=== PATIENT | male | born 1955 | race Caucasian/White ===

== ENCOUNTER → 2016-07-05 | Day surgery (SDC) | payer OTHER ==
[~2016-07-05] VITALS: Ht 172.7 cm; Wt 108.9 kg
[~2016-07-05] MED LIST: AMIODARONE HCL400 M1 PO; AZITHROMYCIN500 M3 PO; CARDIZEM CD120 M2 PO; CARDIZEM30 M1 PO; ELIQUIS5 M1 PO; MUCINEX600 M1 PO; NICOTINE PATCH1 EAC2 TOP; PREDNISONE20 M1 PO; SIMVASTATIN20 M2 PO; ZOCOR40 M1 PO
--- NOTE | 2016-07-05 10:01 | Operative Report ---
Operative/Inv Procedure Report Surgery Date: 07/05/16 Name of Procedure: Tonsillectomy Uvulopalatopharyngoplasty Pre-Operative Diagnosis: Tonsillar hypertrophy uvular hypertrophy Low-lying soft palate obstructive sleep apnea Post-Operative Diagnosis: Same Estimated Blood Loss: scant Surgeon/Implementation Services Analyst: SIMEON ZAVALA MD Anesthesia: general endotracheal tube Drains: Non- Specimens: Right tonsil and uvula, left tonsil Complications: None Condition: Stable on leaving the OR Operative Indication: Mouth breathing and heavy Muffled voice Recurrent upper respiratory infections Recurrent tonsillitis Concretions forming within the tonsils with bad breath and bad taste Patient has been treated with recurrent courses of antibiotics with improvement but then recurrence Operative/Procedure Note Note: Patient was brought to the operating room. Placed on the operating table in supine position. First timeout was performed including patient's name, ID number and planned procedure. Then general orotracheal anesthesia was induced. Endotracheal tube was taped in the midline. Oral cavity was exposed with oral cavity retractor, endotracheal tube positioned in the midline over the tongue. Soft palate was palpated. There was no submucous cleft. Nasopharynx was visualized with a mirror. There was no evidence of adenoid hypertrophy. Examination of the oropharynx revealed large tonsils obstructing the oropharynx and meeting in the midline. The uvula was long and markedly hypertrophied and soft palate was low-lying. Right tonsil was grasped with curved Allis, incision was placed over the anterior superior pole of the mucosa only. Tonsil capsule was identified and dissection was carried from superior to inferior until the entire tonsil was removed. Next the left tonsil was grasped with curved Allis. Incision was placed with the Bovie over the anterior-superior pole through the mucosa only. Tonsillar capsule was identified and dissection carried from the superior to the inferior until the entire tonsil was removed. Dissection was carried with a Bovie, pencil-tip with foot control set on cut of 5 and coag of 15. At the end of the procedure tonsillar fossa was inspected for bleeders. Additional cautery was carried to assure adequate hemostasis. During dissection both tonsils were markedly scarred down and fibrosed. There were very friable and had a great deal of crypts and concretions. Next uvulopalatopharyngoplasty was performed. Uvula was markedly hypertrophied and descending onto the base of tongue. It was grasped with forceps and two thirds of the uvula was removed with the Bovie set on coag of 10 and cut of 10. Once Uvulectomy was completed. Right side of the soft palate was addressed and Bovie was used to remove a wedge of soft palate adjacent to the uvula. Similar procedure was carried on the right side. This was done with the Bovie. All mucosal edges were then approximated over the lateral and medial aspect of the palate extending onto the uvula. 4-0 chromic was used for the stitching. Uvula, its mucosal edges were then approximated with 4-0 chromic simple sutures. This led to significant improvement in the oropharyngeal airway. Surgery was completed. Stomach was suctioned with an OG tube. The patient was reawakened, extubated and taken to the recovery room in good condition. There were no complications. Estimated blood loss was minimal. Findings: Tonsils 4+, uvula markedly hypertrophied, soft palate low-lying Discharge Disposition: PACU CC: MICH NAVA,SOWMYA Espinosa
== END ==
LOC: STS 02:00
PROVIDERS: Otolaryngology
DX: J35.1 Hypertrophy of tonsils (principal); K13.79 Other lesions of oral mucosa; G47.30 Sleep apnea, unspecified; I10 Essential (primary) hypertension; E78.5 Hyperlipidemia, unspecified; J39.8 Other specified diseases of upper respiratory tract
CPT/HCPCS: 36415; 88304; 88305; C9399; J0131; J0690; J2250

== ENCOUNTER → 2017-08-15 | Day surgery (SDC) | payer OTHER ==
[~2017-08-15] VITALS: Ht 172.7 cm; Wt 113.4 kg
[~2017-08-15] MED LIST changes: +CEFUROXIME500 MG PO; +LIPITOR20 M2 PO; +PREDNISONE10 M2 PO
--- NOTE | 2017-08-15 09:04 | Operative Report ---
Operative/Inv Procedure Report Surgery Date: 08/15/17 Name of Procedure: Endoscopic sinus surgery with 1. Nasal septal reconstruction 2. Middle meatal antrotomy with polypoid tissue removal, bilateral 3. Partial ethmoidectomy with polypoid tissue removal, bilateral 4. Middle turbinate reduction, bilateral 5. Inferior turbinate submucous resection, bilateral Pre-Operative Diagnosis: 1. Deviated nasal septum 2. Chronic sinusitis, ethmoid, maxillary, bilateral 3. Turbinate hypertrophy inferior and middle, bilateral Post-Operative Diagnosis: Same Estimated Blood Loss: less than 50ml Surgeon/Blanket Cutting Machine Operator: Carla Guerrero MD Anesthesia: general endotracheal tube Specimens: 1. Nasal septum and inferior turbinates 2. Sinus, ethmoid and maxillary and middle turbinate, left 3. Sinus, ethmoid and maxillary and middle turbinates, right Microbiology: None Complications: None Condition: Stable on leaving the OR Operative Indication: Difficulty breathing through the nose, nasal congestion x several years Chronic sinusitis x years Patient treated with multiple antibiotics, antihistamines, decongestants, steroid and antihistamine nasal sprays with limited improvement, with improvement but then recurrence Frequent facial pressures and headaches Operative/Procedure Note Note: The patient was brought to the operating room. Placed on the operating room table in supine position. At first timeout was performed identifying the patient, ID numbers and procedure to be performed. Next general oral endotracheal anesthesia was induced. Endotracheal tube was secured with tape over the left corner of the lip. Operating room table was rotated 90 to the left and patient was positioned for septal surgery with head slightly hyperextended and rotated to the right. At first vasoconstriction was carried by application of Afrin spray on cottonoid pledgets. Next nasal septum was injected with 1% lidocaine with 1: 100,000 epinephrine approximately 9 mL was injected on the left and another 6 mL on the right. This followed by placement of cotton pledgets saturated with cocaine solution and Afrin spray. Patient's face was then prepped and draped in routine manner and surgery was performed. A left hemitransfixion incision was placed and anterior mucoperichondrial tunnel was elevated followed by posterior mucoperiosteal tunnel. Bony cartilaginous junction was identified and and mucoperiosteal tunnel was elevated on the contralateral side. And anteriorly there was a quadrangular cartilage bowing to the right. Posteriorly there was bony deviation to her left followed by a large vomerine spur. At first the leftward deviation was worked on. Overlying quadrangular cartilage along the floor of the nose and the septum was removed in a piecemeal manner. This followed by piecemeal manner of removal of vomerine bone and finally septal spur was encountered during removal of the septal spur on mucoperiosteal repair performed which was to serve as a drainage hole. The entire leftward deviation was corrected to now anteriorly quadrangular cartilage shot was scored and dissected on the opposite side the spring was broken by making relaxing incision anterior older rightward deviation of the quadrangular cartilage was completely released. Once the septoplasty was completed, prior to closure, left middle turbinate and middle meatus were injected with [3] cc of 1% lidocaine with 1:100,000 epinephrine. This followed by placement of cottonoid pledgets saturated with Afrin and cocaine. Septoplasty incision was closed with 5-0 chromic simple sutures. Followed by a mattress sutures with 5-0 chromic. Please note that the entire septoplasty was carried with 0 scope as well as directed visualization with a headlight. Upon closure of septoplasty incision injection was carried out on the right. Right middle turbinate and middle meatus were injected with 6 cc of 1% lidocaine with 1:100,000 epinephrine. This followed by placement of cottonoid pledgets saturated with Afrin and cocaine. Next endoscopic sinus surgery was carried out, first on the left and then on the right. The surgery was carried with direct visualization with 0 and 30 scopes. At first on the left, middle turbinate was reduced along its inferior border with Gruenwald forceps. Middle meatus was entered. There was polypoid tissue present in the middle meatus. This was removed with the upturned Zo- Blakesley cups. Next partial ethmoidectomy was carried. Additional polypoid tissue was removed from the ethmoid sinuses. Nasofrontal duct was explored and appeared to be patent. Ethmoid bone was then dialed from pressure from polypoid degeneration . Once ethmoidectomy was completed. Maxillary sinus ostium was explored. Uncinate process was partially removed with Setliff forceps. Curved ball seeker was used to probe for the natural maxillary sinus ostium. The ostium was then dilated with curved suction. Polypoid tissue was removed. Surgery was completed on the left. Next surgery was carried on the and right. Again the middle turbinate was reduced along its inferior border with Gruenwald forceps. Middle meatus was filled with polypoid soft tissue. Tissue was then removed with the 45 Ольга-Blakesley forceps. Then partial ethmoidectomy was carried. More polypoid tissue removed from the ethmoid sinuses. Nasofrontal duct was explored. It appeared to be patent. Bony septations within the ethmoid sinuses were quite tall and then dialed from all polypoid tissue pressure. Once ethmoidectomy was completed maxillary sinus ostium was searched for. Partial uncinectomy was carried with Setliff forceps. Curved ball seeker was used to search for the maxillary ostium. Ostium was dilated with a curved suction. Polypoid mucosa was removed. Sinus surgery was completed. Next inferior turbinates were then in and outfractured and excised in submucous manner. This was done with 0 scope visualization. Surgery was completed. Nasal packing was applied next. Gelfilm rolled up into a roll was placed into the middle meatus 2 pieces on each side, secured with 2-0 silk which was then taped to the cheeks with Steri-Strips. Nasal fossa was packed with Telfa saturated with Bactroban ointment. Telfa was stitched anteriorly with 2-0 silk to prevent posterior displacement. Surgery was completed. The patient was reawakened, extubated and taken to the recovery room in good condition. There were no complications. Estimated blood was was 30 mL. Findings: 1. Nasal septum- deviated to the left mid and posterior septum with large posterior vomerine bone with spurring, quadrangular cartilage deviated to the right 2. Ethmoid sinuses- polypoid tissue 3. Maxillary sinuses- polypoid tissue and thickened secretions 4. Middle turbinates- hypertrophy with obstruction of the middle meatus bilateral 5. Inferior Turbinates- hypertrophy with obstruction of the inferior meatus Discharge Disposition: PACU
== END ==
LOC: STS 02:21
DX: J34.2 Deviated nasal septum (principal); J32.2 Chronic ethmoidal sinusitis; J32.0 Chronic maxillary sinusitis; J34.3 Hypertrophy of nasal turbinates; J33.8 Other polyp of sinus; Z87.891 Personal history of nicotine dependence; I10 Essential (primary) hypertension; G47.33 Obstructive sleep apnea (adult) (pediatric); I48.91 Unspecified atrial fibrillation
CPT/HCPCS: 88304; 88305; C9399; J0131; J0171; J0690; J1100; J2250